=== PATIENT | female | born 1945 | race Two or more races ===

== ENCOUNTER 2017-09-14 15:12 | Emergency (ER) | payer MEDICARE ==
[~2017-09-14] VITALS: Ht 149.9 cm; Wt 50.8 kg
--- NOTE | 2017-09-14 15:15 | NUR ---
STAN FROM CLINIC DT LOW BLOOD PRESSURE AND GENERALIZED WEAKNESS WHILE RECEIVING IRON IV INFUSION. PATIENT RECEIVED AWAKE AND ALERT, APPEARS IN DISTRESS. SKIN IS WARM TO TOUCH AND NON DIAPHORETIC. PT IS AFEBRILE./ VSS
[2017-09-14] MEDS: IV NS 0.9% 1,000 ML BAG IV ONE (15:38)
[2017-09-14 16:06] LABS: BASOPHILS # (AUTO) 0.1 /CMM (0.0-0.2); EOSINOPHILS % (AUTO) 0.7 % (0.0-6.0); HEMATOCRIT 47 % (33-45); HEMOGLOBIN 16.1 g/dL (11.5-14.8); LYMPHOCYTES # (AUTO) 0.8 /CMM (0.8-4.8); LYMPHOCYTES % (AUTO) 7.1 % (20.0-44.0); MEAN CORPUSCULAR HGB CONC 34 g/dl (31.0-36.0); MEAN CORPUSCULAR VOLUME 89 fL (82-100); MONOCYTES # (AUTO) 0.1 /CMM (0.1-1.30); MONOCYTES % (AUTO) 0.6 % (2.0-12.0); NEUTROPHILS # (AUTO) 10.1 /CMM (1.8-8.9); NEUTROPHILS % (AUTO) 90.6 % (43.0-81.0); PLATELET COUNT (AUTO) 288 /CMM (150-450); RDW COEFFICIENT OF VARIATION 13.1 (11.5-15.0); RED BLOOD CELL COUNT(AUTO) 5.33 MIL/uL (4.0-5.2); WHITE BLOOD COUNT (AUTO) 11.2 K/uL (4.3-11.0)
[2017-09-14 16:29] LABS: ALANINE AMINOTRANSFERASE 15 U/L (12-78); ALKALINE PHOSPHATASE 50 U/L (46-116); ASPARTATE AMINOTRANSFERASE 17 U/L (15-37); BILIRUBIN,DIRECT 0.1 mg/dL (0.0-0.2); BILIRUBIN,TOTAL 0.5 mg/dL (0.2-1.0); CARBON DIOXIDE 22 mmol/L (21-32); CHLORIDE 101 mmol/L (98-107); CREATININE 1.1 mg/dL (0.6-1.3); POTASSIUM 3.3 mmol/L (3.5-5.1); SODIUM SERUM 135 mmol/L (136-145); TOTAL PROTEIN, SERUM 6.5 g/dL (6.4-8.2); UREA NITROGEN, BLOOD 21 mg/dL (7-18)
[2017-09-14 16:30] LABS: GLUCOSE 420 mg/dL (74-106)
[2017-09-14 16:32] LABS: TROPONIN I < 0.017 ng/mL (0.00-0.056)
[2017-09-14] MEDS ORDERED: INSULIN REGULAR, HUMAN 100 UNIT/ML 10 ML VIAL ONE (18:12)
--- NOTE | 2017-09-14 18:15 | NUR ---
CALLED PHARMACY FOR INSULIN LISPRO
--- NOTE | 2017-09-14 18:24 | NUR ---
INSULIN LISPRO DOSE,8 UNITS, VERIFIED WITH JAI OWENS
[2017-09-14] MEDS: INSULIN LISPRO/ASPART 100 UNIT/ML CARTRIDGE SQ ONE (18:25)
--- NOTE | 2017-09-14 19:04 | NUR ---
REPORT GIVEN TO HARLEY OWENS FOR [facility]. RESTING QUIETLY, NAD NOTED. VSS. IVF COMPLETED.
[2017-09-14 19:27] VITALS: BP 107/60
== END 2017-09-14 19:28 | disposition home or self-care (01) ==
LOC: ER 15:17
DX: R10.84 Generalized abdominal pain (principal); T45.4X5A Adverse effect of iron and its compounds, initial encounter; I10 Essential (primary) hypertension; E11.9 Type 2 diabetes mellitus without complications; Z85.3 Personal history of malignant neoplasm of breast; Z90.12 Acquired absence of left breast and nipple; Z79.4 Long term (current) use of insulin; Z92.21 Personal history of antineoplastic chemotherapy; Y92.89 Other specified places as the place of occurrence of the external cause
CPT/HCPCS: 36415; 71045-TC; 80048-TC; 80076-TC; 84484-TC; 85025-TC; A4606; J1815; J7030; Z7610